=== PATIENT | male | born 1955 | race African-American/Black ===

== ENCOUNTER 2017-08-02 09:44 | Emergency (ER) | payer BC ==
[~2017-08-02] VITALS: Ht 182.9 cm; Wt 119.0 kg
[~2017-08-02 09:44] MED LIST: ASPIR 8181 M1 PO; CARVEDILOL12.5 MG PO; CLEOCIN HCL300 MG PO; GLIPIZIDE 10 MG10 MG PO; GLUCOPHAGE500 MG PO; LIPITOR 20 MG T20 M1 PO; LISINOPRIL-HCT1 EAC1 PO; LOPRESSOR 50 MG50 M1 PO; METFORMIN; NEXIUM40 MG PO; NORCO 5-325 TA1 EACH PO; XANAX 0.25 MG0.25 MG PO; ZOCOR40 MG PO; [UNRECOGNIZED DRUG - REMARK]
[2017-08-02 09:58] VITALS: BP 164/90
[2017-08-02] MEDS ORDERED: GLIPIZIDE 10 MG10 MG PO (10:09)
[2017-08-02] MEDS ORDERED: AMLODIPINE BESY10 MG PO (10:10)
[2017-08-02] MEDS ORDERED: JANUVIA 50 MG T50 M1 PO (10:11)
--- NOTE | 2017-08-02 16:40 | EKG ---
[place] [address] ELECTROCARDIOGRAM REPORT Name: TO GARIBAY Room: [facility]#: [id number] Admission: 08/02/17 Attend Phys: Discharge: Date of : 57 Report #: [id number] THIS REPORT FOR: //name// [facility] ED Test Date: 2017-08-02 Test Time: 10:03:59 Pat Name: TO GARIBAY Department: Room: Gender: Access Service Representative: Missy MOORE : 1955 Requested By: Luis Felipe Wilkerson Order Number: [id number] MD: Glen Delgado Measurements Intervals [place] Rate: 84 P: 54 AK: 145 QRS: 19 QRSD: 100 T: 13 QT: 367 QTc: 434 Interpretive Statements Sinus rhythm Abnormal R-wave progression, early transition Inferior infarct, old Compared to ECG 07/14/2017 09:23:33 No significant changes Electronically Signed On 08-02-2017 16:40:10 BLOCK [employer]TER [employer]LE OPERATOR by Glen Delgado [email or web address] <ELECTRONICALLY SIGNED> By: Glen Delgado MD, [facility] 08/02/17 [facility] 1003 1003 Glen Delgado MD, FAC /EPI
== END 2017-08-02 10:25 | disposition home or self-care (01) ==
LOC: M.ERS 09:44
DX: R53.1 Weakness (principal); I10 Essential (primary) hypertension; E78.00 Pure hypercholesterolemia, unspecified; E11.9 Type 2 diabetes mellitus without complications; Z95.1 Presence of aortocoronary bypass graft

== ENCOUNTER 2019-03-04 15:49 | Inpatient (IN) | payer OTHER ==
[~2019-03-04] VITALS: Ht 180.3 cm; Wt 103.0 kg
[~2019-03-04 15:49] MED LIST changes: +AMLODIPINE BESY10 MG PO; +JANUVIA 50 MG T50 M1 PO
[2019-03-04 15:57] VITALS: BP 141/81
[2019-03-04 16:20] LABS: ABSOLUTE BASOPHILS 0.1 thou/uL (0.0-0.2); ABSOLUTE EOSINOPHILS 0.1 thou/uL (0.0-0.7); ABSOLUTE LYMPHOCYTES 1.4 thou/uL (0.8-5.3); ABSOLUTE MONOCYTES 1.3 thou/uL (0.0-1.2); BASOPHILS 0.6 %; EOSINOPHILS 1.3 %; HEMATOCRIT 38.5 % (42.0-52.0); LYMPHOCYTES 12.9 %; MCH 31.7 pg (26.0-34.0); MCHC 33.8 g/dL (28.0-37.0); MCV 93.7 fL (80.0-100.0); MONOCYTES 12.1 %; MPV 8.6 fl. (7.2-11.1); NUCLEATED RBCS 0 /100WBC; PLATELET COUNT* 200 thou/uL (150-400); POLYS 73.1 %; RBC 4.11 mil/uL (4.50-6.00); RDW-CV 13.1 % (10.5-14.5); WBC 10.9 thou/uL (4.0-11.0)
[2019-03-04 16:26] LABS: ANION GAP 8 mmol/L (7-16); BUN 18 mg/dL (7-18); CALCIUM 8.8 mg/dL (8.5-10.1); CHLORIDE 102 mmol/L (98-107); CO2 28 mmol/L (21-32); CREATININE 1.5 mg/dL (0.6-1.3); GLUCOSE 186 mg/dL (70-99); SODIUM 138 mmol/L (136-145)
[2019-03-04 16:28] LABS: URINE BILIRUBIN NEGATIVE (Negative); URINE BLOOD 3+ (Negative); URINE CLARITY CLEAR; URINE COLOR YELLOW; URINE GLUCOSE-RANDOM TRACE (Negative); URINE KETONES NEGATIVE (Negative); URINE LEUKOCYTES-REFLEX 1+ (Negative); URINE NITRITE-REFLEX NEGATIVE (Negative); URINE PROTEIN TRACE (Negative); URINE SPECIFIC GRAVITY 1.025 (1.005-1.030); URINE UROBILINOGEN 0.2 E.U./dl (0.2-1.0)
[2019-03-04 16:35] LABS: ALBUMIN 3.3 g/dL (3.4-5.0); ALKALINE PHOSPHATASE 88 U/L (46-116); LIPASE 126 U/L (73-393); SGOT 14 U/L (15-37); SGPT 25 U/L (30-65); TOTAL BILIRUBIN 0.8 mg/dL (<0.1-1.0); TOTAL PROTEIN 7.5 g/dL (6.4-8.2); TROPONIN-I LEVEL <0.06 ng/mL (<0.06)
[2019-03-04 16:43] LABS: HYALINE CASTS 4-10 Moderate /LPF (None Seen); SQUAMOUS 0-3 Few /LPF (0-3); URINE RBC >20 Many /HPF (0-2)
[2019-03-04 16:44] LABS: BACTERIA-REFLEX 1-9 Few /HPF (None Seen); CRYSTALS None Seen /LPF (None Seen); MUCUS None Seen strn/LPF (None Seen); URINE WBC-REFLEX 6-15 Few /HPF (0-5)
[2019-03-04 19:26] VITALS: BP 138/74
[2019-03-04 19:32] VITALS: BP 136/76
[2019-03-05 04:07] LABS: ABSOLUTE BASOPHILS 0.1 thou/uL (0.0-0.2); ABSOLUTE EOSINOPHILS 0.1 thou/uL (0.0-0.7); ABSOLUTE LYMPHOCYTES 1.6 thou/uL (0.8-5.3); ABSOLUTE MONOCYTES 1.4 thou/uL (0.0-1.2); ABSOLUTE NEUTROPHILS 6.2 thou/uL (1.6-8.1); BASOPHILS 0.7 %; EOSINOPHILS 1.3 %; HEMATOCRIT 36.8 % (42.0-52.0); HEMOGLOBIN 12.2 gm/dL (14.0-18.0); LYMPHOCYTES 17.4 %; MCH 31.1 pg (26.0-34.0); MONOCYTES 14.6 %; NUCLEATED RBCS 0 /100WBC; PLATELET COUNT* 196 thou/uL (150-400); RBC 3.91 mil/uL (4.50-6.00); RDW-CV 13.2 % (10.5-14.5); WBC 9.4 thou/uL (4.0-11.0)
[2019-03-05 04:17] LABS: CALCIUM 8.7 mg/dL (8.5-10.1); CREATININE 1.2 mg/dL (0.6-1.3); POTASSIUM 4.1 mmol/L (3.5-5.1)
--- NOTE | 2019-03-05 05:55 | NUR ---
PATIENT ARRIVED REPORTING NO PAIN, HE SLEPT THROUGH MOST OF SHIFT. AT 0400 HE RATED HIS PAIN 7/10 INCREASING SHARPNESS IN RLQ. GAVE 50 MCG OF FENTANYL. AT 0530 HIS PAIN WAS STILL INCREASING, PAGED FOR SOLUTION.
[2019-03-05 07:58] VITALS: BP 139/70
[2019-03-05 16:53] VITALS: BP 124/70
--- NOTE | 2019-03-05 16:58 | NUR ---
PT A&Ox4. VITALS STABLE. IV PATENT, INFUSING. PASSED 1 STONE, SENT TO LAB AND DR NOTIFIED. WALKING AROUND SPIKE. UP AD REBECCA. PAIN CONTROLLED WITH FENTANYL. DENIED NAUSEA/VOMITING. CALL LIGHT WITHIN REACH. WILL CONTINUE TO MONITOR.
[2019-03-05 21:18] VITALS: BP 134/59
--- NOTE | 2019-03-06 06:23 | NUR ---
PATIENT REQUIED NO PAIN MEDICINE AND REPORTED NO WORSENING OF SYMPTOMS. MADE NPO AT MIDNIGHT. HE WAS ABLE TO SLEEP THROUGHOUT THE SHIFT.
--- NOTE | 2019-03-06 09:31 | EKG ---
[place] [address] ELECTROCARDIOGRAM REPORT Name: TO GARIBAY Room: [address] .R.#: [id number] Admission: 03/04/19 Attend Phys: Forrest Serrano MD Discharge: Date of : 57 Report #: [id number] THIS REPORT FOR: //name// [facility] ED Test Date: 2019-03-04 Test Time: 16:27:01 Pat Name: TO GARIBAY Department: Room: [facility] Gender: M Hospitality Specialist: : 1955 Requested By: Adri Hodges Order Number: [id number] MD: Glen Delgado Measurements Intervals [place] Rate: 74 P: 30 MA: 146 QRS: 26 QRSD: 97 T: 56 QT: 390 QTc: 433 Interpretive Statements Sinus rhythm Abnormal R-wave progression, early transition Inferior infarct, old Incomplete right bundle-branch block Compared to ECG 08/02/2017 10:03:59 Inferior Q waves now present Electronically Signed On 03-06-2019 9:30:50 CDT by Glen Delgado [email or web address] <ELECTRONICALLY SIGNED> By: Glen Delgado MD, FACC 03/06/19 0930 1627 [id number] Glen Delgado MD, [facility] /EPI
[2019-03-06 10:12] VITALS: BP 134/59
[2019-03-06 13:25] VITALS: BP 134/59
--- NOTE | 2019-03-06 13:38 | NUR ---
PT DC HOME PER UROLOGY. PT ALERT AND ORIENTED, DENIES PAIN. PT GIVEN DC INSTRUCTIONS AND VERBALIZES UNDERSTANDING. IV TAKEN OUT WITHOUT COMPLICATIONS. ALL BELONGINGS SENT WITH PT. SEE ASSESSMENT AND VITALS FOR OTHER DETAILS.
[2019-03-06 13:41] VITALS: BP 134/59
== END 2019-03-06 13:40 | disposition home or self-care (01) | DRG 694 ==
LOC: M.ERS 15:49 → M.TBA-ER 17:58 → M.ORTHSURG 17:58
PROVIDERS: Nurse Practitioner Family; ADMIT Internal Medicine
DX: N13.2 Hydronephrosis with renal and ureteral calculous obstruction (principal); N30.01 Acute cystitis with hematuria; N17.9 Acute kidney failure, unspecified; I25.10 Atherosclerotic heart disease of native coronary artery without angina pectoris; E11.9 Type 2 diabetes mellitus without complications; I10 Essential (primary) hypertension; E78.5 Hyperlipidemia, unspecified; Z95.1 Presence of aortocoronary bypass graft; Z90.49 Acquired absence of other specified parts of digestive tract; Z79.82 Long term (current) use of aspirin; Z87.891 Personal history of nicotine dependence; Z79.899 Other long term (current) drug therapy; Z98.49 Cataract extraction status, unspecified eye